=== PATIENT | female | born 1975 | race Caucasian/White ===

== ENCOUNTER 2020-01-23 08:19 | Outpatient (CLI) | payer OTHER, SELFPAY ==
--- NOTE | ~2020-01-23 | MM_ITS ---
EXAMINATION: MM screening [facility] HISTORY: Screening mammogram TECHNIQUE: Craniocaudal and mediolateral oblique 3-D tomosynthesis images were obtained and synthetic 2-D images were generated. CAD analysis was submitted and interpreted. COMPARISON: No prior mammogram is available for comparison at this institution. BREAST PARENCHYMAL COMPOSITION: There are scattered areas of fibroglandular density. FINDINGS: There is no evidence of suspicious mass, calcification, or architectural distortion to sugg est malignancy in either breast. There has been no suspicious interval change. IMPRESSION: 1. No mammographic evidence of malignancy. 2. Recommend routine screening mammography in one year. BI-RADS Category 1: Negative Reviewed, dictated and finalized at location A.
== END 2020-01-23 08:20 | disposition home or self-care (01) ==
LOC: ANHIMG 08:23
PROVIDERS: PCP Registered Nurse; Visit Provider Registered Nurse
DX: Z12.31 Encounter for screening mammogram for malignant neoplasm of breast (principal)
CPT/HCPCS: 77063; 77067

== ENCOUNTER 2021-10-20 17:17 | Emergency (ER) | payer OTHER, SELFPAY ==
--- NOTE | ~2021-10-20 | CT_ITS ---
EXAMINATION: CT abdomen pelvis wo con DATE: 10/20/2021 18:42 INDICATION: R flank/RLQ pain, nausea, r/o stone/appy TECHNIQUE: Computed tomography (CT) of the abdomen and pelvis was performed without intravenous contr ast. Automated exposure control and iterative reconstruction technique were employed. The dose-length product was 758.76 mGy-cm. COMPARISON: Ultrasound right upper quadrant 09/13/2018, CT pelvis 11/26/2009. FINDINGS: Lower thorax: Unremarkable Liver: Normal. Biliary/Gallbladder: Gallbladder is absent. No bile duct dilation. Pancreas: No mass or duct dilation. Spleen: Normal. Adrenals:Right adrenal adenoma. Kidneys: No mass, stone, or hydronephrosis. Mild bilateral perinephric stranding. GI tract: No small or large bowel dilation. Normal appendix. Mesentery/Peritoneum: No ascites, mass, or free air. Retroperitoneum: No mass. Pelvis: Absent uterus, otherwise the pelvic organs are within normal limits. Soft Tissues: Soft tissues and body wall unremarkable. Bones: No acute osseous finding. IMPRESSION: No acute abdominopelvic process. Specifically there is no CT evidence of acute appendicitis or obstru ctive uropathy. Reviewed, dictated and finalized at location K. IMPRESSION: No acute abdominopelvic process. Specifically there is no CT evidence of acute appendicitis or obstructive uropathy.
[2021-10-20 17:47] VITALS: BP 131/82; PULSE 96; RESP 14; O2SAT 98
[2021-10-20 18:03] LABS: Basophils Absolute Auto 0.1 K/mm3 (0.0-0.1); Basophils Percent Auto 0.5 % (0.2-1.2); Eosinophils Absolute Auto 0.1 K/mm3 (0-0.3); Eosinophils Percent Auto 0.9 % (0-4.4); Hematocrit 37.8 % (37.0-47.0); Hemoglobin 12.1 g/dL (12.0-15.0); Immature Granulocyte Absolute 0.05 K/mm3 (0.00-0.031); Immature Granulocyte Percent A 0.4 % (0-0.5); Lymphocytes Percent Auto 16.3 % (18.3-44.2); Mean Corpuscular Hemoglobin 27.6 pg (26-34); Mean Corpuscular Volume 86.3 fl (80-100); Mean Platelet Volume 11.1 fl (7.4-10.4); Monocytes Absolute Auto 0.8 K/mm3 (0.1-0.6); Monocytes Percent Auto 6.4 % (2.6-8.5); Neutrophils Absolute Auto 9.3 K/mm3 (1.3-6.7); Neutrophils Percent Auto 75.5 % (45.5-73.1); Platelet Count Result 309 k/mm3 (150-375); Red Blood Count 4.38 M/mm3 (4.2-5.4); Red Cell Distribution Width 14.6 % (11.5-14.5); White Blood Count 12.3 K/mm3 (4.5-10.0)
[2021-10-20 18:12] LABS: Alanine Aminotransferase 32 U/L (6-35); Albumin Level 4.3 g/dL (3.5-5.1); Alkaline Phosphatase 60 U/L (38-126); Anion Gap 9 mmol/L (8-16); Aspartate Amino Transferase 37 U/L (14-36); Bilirubin,Total < 0.1 mg/dL (0.2-1.3); Blood Urea Nitrogen 12 mg/dL (7-17); Calcium 8.9 mg/dL (8.4-10.2); Carbon Dioxide 22 mmol/L (22-30); Chloride 107 mmol/L (98-107); Estimated CRCL calculation 74 ml/min; Estimated Glomerular Filt Rate > 60; Glucose 96 mg/dL (65-110); Potassium 3.6 mmol/L (3.4-5.0); Sodium 138 mmol/L (137-145)
--- NOTE | 2021-10-20 18:31 | ED.GENADULT ---
HPI - General Adult General Chief complaint: Urogenital-Female Stated complaint: right flank pain Time Seen by Provider: 10/20/21 18:07 Source: patient Mode of arrival: ambulatory Limitations: no limitations History of Present Illness HPI narrative: Patient is a 46 y/o female who presents to the ED with c/o right flank pain. Patient reports she woke up this morning with pain in her right flank/lower back. The pain radiates around to her right lower quadrant and right pelvic region. She has not tried anything for the pain today. She has chronic nausea due to erosive esophagitis, but states the nausea has been slightly worse today. Denies any vomiting. She does report having urinary frequency with small void urine, but denies any dysuria or hematuria. No fever, chills, diarrhea, constipation, chest pain, difficulty breathing, upper back pain. No incontinence, no weakness of legs, no urinary retention, no numbness. Denies any recent strenuous activity. She did help her son move last couple days, but she denied any significant heavy lifting. Related Data Home Medications Medication Instructions Recorded Confirmed famotidine 20 mg tablet tablet 10/20/21 pantoprazole 40 mg tablet,delayed tablet PO 10/20/21 release pregabalin 50 mg capsule cap 10/20/21 sertraline 100 mg tablet tablet 10/20/21 sucralfate 1 gram tablet tablet 10/20/21 topiramate 25 mg tablet tablet 10/20/21 Allergies Allergy/AdvReac Type Severity Reaction Status Date / Time lamotrigine Allergy Unknown hives Verified 10/20/21 19:29 ropinirole Allergy Unknown NAUSEA Verified 10/20/21 19:29 diphenhydramine AdvReac Unknown Jittery Verified 10/20/21 19:29 Review of Systems Review of Systems: CONSTITUTIONAL: Denies fever, chills, or sweats. CARDIOVASCULAR: Denies chest pain. RESPIRATORY: Denies dyspnea. GASTROINTESTINAL: Reports right lower quadrant/right pelvic pain, nausea. Denies vomiting, incontinence, retention, constipation, or diarrhea. GENITOURINARY: Reports urinary frequency with small void urines. Denies dysuria or hematuria. MUSCULOSKELETAL: Reports right flank/right lower back pain. Denies joint pain. NEUROLOGIC: Denies headache, numbness, or weakness. All systems reviewed & are unremarkable except as noted in HPI and below PMFSH Past Medical History Medical History Bipolar disorder Erosive esophagitis Fibromyalgia Surgical History Surgical History (Updated 10/20/21 @ 18:36 by Jagruti Singletary PA-C) History of cholecystectomy History of hysterectomy Social History Social History (Updated 10/20/21 @ 18:36 by Jagruti Singletary PA-C) Smoking status: Never smoker Exam Narrative: GENERAL: Well appearing, well-nourished, non-toxic, in no acute distress. HEAD: Normocephalic, atraumatic. NECK: Supple. No adenopathy, no masses. RESPIRATORY: Airway patent, respirations nonlabored. Clear to auscultation bilaterally, no rales, rhonchi, wheezing. CARDIOVASCULAR: Regular rate and rhythm without murmurs, rubs, or gallops. Peripheral pulses 2+ and equal bilaterally. ABDOMINAL: Soft, mild tenderness in right lower quadrant/right inguinal region. Nondistended, no hepatosplenomegaly. No CVA tenderness to percussion. Normoactive BS. MUSCULOSKELETAL: Moves all extremities. Strength/ROM intact without gross deformities. Point tenderness to palpation in right lower back/lumbosacral region. No midline spinal tenderness. SKIN: Warm, dry, normal color. No rashes. NEURO: A&O X3. Speech clear. Cranial nerves II-XII grossly intact. Steady gait. No ataxic movements. PSYCHIATRIC: Appropriate mood and affect. Normal interaction. Course Vital Signs Vital signs: Vital Signs Pulse Rate 96 10/20/21 17:47 Respiratory Rate 14 10/20/21 17:47 Blood Pressure 131/82 10/20/21 17:47 Pulse Oximetry 98 10/20/21 17:47 Pulse Rate 82 10/20/21 22:50 Respiratory Rate 18 10/20/21 22:50 Blo
[2021-10-20 18:34] LABS: Appearance Urine Clear (Clear); Bilirubin Urine Negative (Negative); Blood Urine Negative (Negative); Color Urine Yellow (Yellow); Glucose Urine UA Negative (Negative); Ketones Urine Negative (Negative); Leukocyte Esterase Ur Negative LEU/UL (Negative); Nitrate Urine Negative (Negative); Protein Urine Negative (Negative); Urobilinogen Urine 0.2 mg/dL (<2.0); pH Urine 6.5 (5.0-9.0)
[2021-10-20 18:35] LABS: Add Urine Microscopic? NO
--- NOTE | 2021-10-20 18:41 | PC.NURSE ---
Pt taken to CT scan
[2021-10-20] MEDS: ONDANSETRON INJ 4 MG/2 ML VIAL IV PUSH (18:49)
[2021-10-20] MEDS: SODIUM CHLORIDE 0.9% IV 1,000 ML 999 ML IV CONT (18:49)
[2021-10-20] MEDS: KETOROLAC 30 MG/ML VIAL (*BKC) IV PUSH (20:33)
[2021-10-20 20:44] LABS: Lipase 117 U/L (23-300)
[2021-10-20] MEDS: MORPHINE SULFATE (*CRX) 4 MG/ML INJ 2 MG IV PUSH (21:05)
[2021-10-20 21:07] VITALS: BP 137/82; PULSE 83; RESP 16; O2SAT 98
[2021-10-20] MEDS: CYCLOBENZAPRINE HCL 5 MG TABLET PO (22:47)
[2021-10-20 22:50] VITALS: BP 116/90; PULSE 82; RESP 18; O2SAT 97
== END 2021-10-20 22:50 | disposition home or self-care (01) ==
PROVIDERS: Emergency Medicine; Physician Assistant; Emergency Provider Emergency Medicine; PCP Registered Nurse
DX: S39.012A Strain of muscle, fascia and tendon of lower back, initial encounter (principal); F31.9 Bipolar disorder, unspecified; K22.10 Ulcer of esophagus without bleeding; M79.7 Fibromyalgia; X58.XXXA Exposure to other specified factors, initial encounter
CPT/HCPCS: 36415; 74176; 80053; 81003; 81025; 83690; 85025; 96365; 96375; 99284; A9270; J0131; J1885; J2270; J2405; J7030